=== PATIENT | female | born 1975 | race Caucasian/White ===

== ENCOUNTER 2017-01-23 02:23 | Emergency (ER) | payer OTHER ==
[~2017-01-23] VITALS: Ht 157.5 cm; Wt 74.8 kg
[2017-01-23 03:21] LABS: CALCIUM 8.7 mg/dL (8.5-10.1); CARBON DIOXIDE 29.1 mmol/L (21-32); CHLORIDE SERUM 104 mmol/L (98-107); CREATININE SERUM 0.9 mg/dL (0.6-1.0); GFR1 > 60 mL/min; GLUCOSE SERUM 122 mg/dL (74-106); POTASSIUM SERUM 4.3 mmol/L (3.5-5.1); SODIUM SERUM 139 mmol/L (136-145)
[2017-01-23 03:25] LABS: ALBUMIN 3.6 g/dL (3.4-5.0); ALKALINE PHOSPHATASE 71 U/L (46-116); ALT/SGPT 42 U/L (14-59); AST/SGOT 28 U/L (15-37); BILIRUBIN TOTAL 0.52 mg/dL (0.20-1.00); TOTAL PROTEIN, SERUM 8.2 g/dL (6.4-8.2)
[2017-01-23 03:39] LABS: BASOPHIL % 0.6 % (0-2); PLATELET COUNT 355 x10^3mcL (130-400); RED CELL DISTRIBUTION WIDTH 12.5 % (11.5-14.5)
[2017-01-23 04:45] VITALS: BP 157/100
== END 2017-01-23 04:45 | disposition home or self-care (01) ==
LOC: ED 02:23
PROVIDERS: Emergency Medicine
DX: R10.9 Unspecified abdominal pain (principal); I10 Essential (primary) hypertension
CPT/HCPCS: J1885; J7030